=== PATIENT | female | born 1955 | race Two or more races ===

== ENCOUNTER → 2019-02-28 | Day surgery (SDC) | payer MEDICARE, OTHER ==
[~2019-02-28] VITALS: Ht 170.2 cm; Wt 143.2 kg
[~2019-02-28] MED LIST: ALBU6.7H IH; ALBU8.5H3 IH; ALBUTEROL SULFATE 2.5 MG/0.5 ML NEB SOLUTION NEB ONE; AMLO10TA55 PO; BACL20TA PO; BENZOCAINE 20% 50 MCG/SPRAY 57 GM TP ONE; CETI10TA58 PO; CYCL10 PO; DIAZ10 PO; DIPH25CA85 PO; ERGO500014 PO; FAMO20 PO; FLUT16H NASAL; FLUT1AER IH; FOLI1TAB15 PO; FentaNYL CITRATE-PF 100 MCG/2 ML VIAL ONE; GABA-531 PO; GABA600T10 PO; HYDR-2924 PO; HYDR-3965 PO; IBUP-1554 PO; LIDOCAINE 2% 30 ML JELLY TP ONE; LIDOCAINE 2% 5 ML JELLY TP ONE; LIDOCAINE 4% 50 ML SOLUTION TP ONE; LISI-618 PO; LISI40TA4 PO; LORA10TA7 PO; METH2.5T6 PO; METO25 PO; MIDAZOLAM HCL 2 MG/2 ML VIAL ONE; MIRALAX PO; MOME13HF IH; MONT10TA21 PO; MethylPREDNISolone SOD SUCC 125 MG/2 ML VIAL IVP ONE; MethylPREDNISolone SOD SUCC 125 MG/2 ML VIAL ONE; NAPR-1025 PO; OMEP20 PO; OXYB5XL PO; OXYGEN THERAPY IH SCH; PERCT PO; PRED5 PO; SODIUM CHLORIDE 0.9% 1,000 ML IV ONE; TIOT185 IH; TRAM50TA4 PO
== END | disposition home or self-care (01) ==
LOC: SURGERY 06:00
PROVIDERS: ATTEND Internal Medicine Critical Care Medicine
DX: R05 Cough (principal); R91.1 Solitary pulmonary nodule; J34.89 Other specified disorders of nose and nasal sinuses; J98.8 Other specified respiratory disorders; J38.4 Edema of larynx; B37.0 Candidal stomatitis; I10 Essential (primary) hypertension; G47.33 Obstructive sleep apnea (adult) (pediatric); E78.5 Hyperlipidemia, unspecified; Z88.0 Allergy status to penicillin; Z88.8 Allergy status to other drugs, medicaments and biological substances; Z91.041 Radiographic dye allergy status; Z79.899 Other long term (current) drug therapy
CPT/HCPCS: 31623; 31624; 71045; 87015; 87070; 87101; 87205; 87206; 87220; 88108; 88312; 93005; J2250; J2930; J3010; J7030